=== PATIENT | female | born 1980 | race Caucasian/White ===

== ENCOUNTER 2021-03-04 10:30 | Emergency (ER) | payer OTHER ==
[2021-03-04 11:00] VITALS: PULSE 92; TEMP 98.2; BMI 54.5
[2021-03-04 12:48] VITALS: BP 158/85
[2021-03-04 13:10] LABS: BASO % 0.5 % (0-2.0); EOS % 3.2 % (0-4.5); EPI CELLS 36 /uL (0-25.1); HEMATOCRIT 43.9 % (32.4-45.2); HEMOGLOBIN 14.8 GM/dL (10.7-15.3); HYALINE CASTS 1 /uL (0-3.1); MCH 27.3 pg (25.7-33.7); MCHC 33.7 g/dl (32.0-36.0); MEAN CELL VOLUME 81.1 fl (80-96); MONO % 5.3 % (3.8-10.2); PLATELET COUNT 303 10^3/uL (134-434); RBC 5.41 M/mm3 (3.60-5.2); RDW 14.5 % (11.6-15.6); URINE APPEARANCE CLEAR; URINE BACTERIA 291 /uL (0-1359); URINE BILIRUBIN NEGATIVE (NEGATIVE); URINE COLOR YELLOW; URINE GLUCOSE (UA) NEGATIVE (NEGATIVE); URINE KETONE NEGATIVE (NEGATIVE); URINE LEUK ESTERASE TRACE (NEGATIVE); URINE NITRITE NEGATIVE (NEGATIVE); URINE PROTEIN NEGATIVE (NEGATIVE); URINE RBC 12 /uL (0-23.9); URINE UROBILINOGEN 0.2 mg/dL (0.2-1.0); URINE WBC 15 /uL (0-25.8); WHITE BLOOD COUNT 8.6 K/mm3 (4.0-10.0)
[2021-03-04 13:26] LABS: CHLORIDE 110 mmol/L (98-107); SODIUM 140 mmol/L (136-145)
[2021-03-04 13:34] LABS: ALBUMIN 4.1 g/dl (3.4-5.0); ANION GAP 8 MMOL/L (8-16); BLOOD UREA NITROGEN 15.7 mg/dL (7-18); CALCIUM 8.8 mg/dL (8.5-10.1); CO2 22 mmol/L (21-32); GLUCOSE,RANDOM 85 mg/dL (74-106); MAGNESIUM 2.1 mg/dL (1.8-2.4)
[2021-03-04 13:38] LABS: SGOT/AST 21 U/L (15-37)
[2021-03-04 13:39] LABS: BILIRUBIN,TOTAL 0.4 mg/dL (0.2-1); SGPT/ALT 33 U/L (13-61)
[2021-03-04 13:40] LABS: ALK PHOS 77 U/L (45-117); TOT PROT 7.7 g/dl (6.4-8.2)
[2021-03-04 13:54] LABS: CREATININE 0.7 mg/dL (0.55-1.3)
== END 2021-03-04 16:00 | disposition home or self-care (01) ==
LOC: JER 10:30
DX: I10 Essential (primary) hypertension (principal)
CPT/HCPCS: 36415; 70450-TC; 71046-TC-FY; 80053; 81003; 82550; 83735; 84484; 84703; 85025; 93005; 93010; 99284-25